=== PATIENT | male | born 1950 | race Caucasian/White ===

== ENCOUNTER 2018-09-23 08:02 | Day surgery (SDC) | payer MEDICARE, OTHER ==
[~2018-09-23 08:02] MED LIST: Lactated Ringers 1,000 ML IV SCH; Sodium Chloride 0.9% 10 ML Syringe FLUSH PRN
[2018-09-23] MEDS ORDERED: Propofol 200 MG/20 ML SDV ONE (11:04)
[2018-09-23] MEDS ORDERED: fentaNYL 100 MCG/2 ML SDV ONE (11:04)
--- NOTE | 2018-09-23 12:32 | OR ---
PREOPERATIVE DIAGNOSIS: Pharyngeal dysphagia. POSTOPERATIVE DIAGNOSES: 1. Diffuse gastritis with superficial ulcerations. 2. 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 PROCEDURE PROPOSED AND PROCEDURE DONE: Upper gastrointestinal panendoscopy with antral biopsies. INDICATION: This is a 68-year-old gentleman who has been having some pharyngeal dysphagia over the last couple of months. He denies any gastric symptomatology, but it was felt that he should be gastroscoped to rule out significant pathology. TECHNIQUE: The patient was brought to the endoscopy suite and placed in left lateral decubitus position. He was sedated per DR[employer] HAMMER SETTER UP with propofol. The flexible video gastroscope was advanced transorally and under visualization, advanced well into the duodenum. The duodenal bulb revealed some duodenitis. The antrum and body of the stomach revealed diffuse gastritis with some superficial ulcerations, and a couple of antral biopsies were taken to rule out H. pylori. GE junction did not reveal any evidence of hiatal hernia. There were no signs of any active GERD, stenosis, or Schatzki's ring. The remainder of the esophagus was normal as the scope was then withdrawn. The patient tolerated the procedure well. FINAL IMPRESSION: 1. Diffuse gastritis with superficial ulcerations. 2. Duodenal bulb duodenitis. 3. 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 PLAN: Protonix generic 40 mg daily for 6 weeks. He needs to avoid and cut back on the caffeine consumption as well as ibuprofen and Aleve. Follow up with his PCP as needed. He was given 1 or 2 refills. SCM: 09/23/2018 11:58:08 MODL: 09/23/2018 12:25:19 /[id number]
--- NOTE | 2018-10-04 08:15 | LETTER ---
10/04/2018 Koel Hernandez RE: KOLE HERNANDEZ : 1950 Dear Kole: The biopsies taken from your stomach did not reveal any significant pathology and most importantly, you do not have the bacteria in your stomach known as H pylori. If you have any further questions regarding this, feel free to call. Respectfully,
== END 2018-09-23 12:52 | disposition home or self-care (01) ==
LOC: VM.SDS 08:02
PROVIDERS: ATTEND Surgery
DX: K29.70 Gastritis, unspecified, without bleeding (principal); K29.80 Duodenitis without bleeding; K25.9 Gastric ulcer, unspecified as acute or chronic, without hemorrhage or perforation; F41.8 Other specified anxiety disorders; R53.83 Other fatigue; R35.0 Frequency of micturition; M19.041 Primary osteoarthritis, right hand; G25.81 Restless legs syndrome; M17.12 Unilateral primary osteoarthritis, left knee; G47.33 Obstructive sleep apnea (adult) (pediatric); R79.89 Other specified abnormal findings of blood chemistry; E78.00 Pure hypercholesterolemia, unspecified; E78.5 Hyperlipidemia, unspecified; F32.9 Major depressive disorder, single episode, unspecified; Z79.82 Long term (current) use of aspirin; Z79.899 Other long term (current) drug therapy; Z87.891 Personal history of nicotine dependence; Z99.89 Dependence on other enabling machines and devices; Z96.619 Presence of unspecified artificial shoulder joint
CPT/HCPCS: 00731; 43239; J2704; J3010; J7120; 88305

== ENCOUNTER 2021-07-28 12:00 | Day surgery (SDC) | payer MEDICARE, OTHER ==
[2021-07-28] MEDS ORDERED: fentaNYL 100 MCG/2 ML SDV ONE (13:34)
[2021-07-28] MEDS ORDERED: Propofol 200 MG/20 ML SDV ONE ×2 (13:34→14:42)
== END 2021-07-28 16:00 | disposition home or self-care (01) ==
LOC: VM.SDS 12:00
PROVIDERS: ATTEND Family Medicine
DX: Z12.11 Encounter for screening for malignant neoplasm of colon (principal); D12.0 Benign neoplasm of cecum; D12.2 Benign neoplasm of ascending colon; D12.3 Benign neoplasm of transverse colon; D12.4 Benign neoplasm of descending colon; K57.30 Diverticulosis of large intestine without perforation or abscess without bleeding; G47.33 Obstructive sleep apnea (adult) (pediatric); E78.00 Pure hypercholesterolemia, unspecified; F32.A Depression, unspecified; G25.81 Restless legs syndrome; Z98.890 Other specified postprocedural states; Z80.0 Family history of malignant neoplasm of digestive organs; Z79.899 Other long term (current) drug therapy
CPT/HCPCS: 00812; 88305; J2704; J3010; J7120

== ENCOUNTER 2024-09-25 11:34 | Day surgery (SDC) | payer MEDICARE, OTHER ==
[2024-09-25] MEDS: Lactated Ringers 1,000 ML IV SCH (11:54)
[2024-09-25] MEDS ORDERED: fentaNYL 100 MCG/2 ML SDV ONE (12:20)
[2024-09-25] MEDS ORDERED: Propofol 200 MG/20 ML SDV ONE (12:20)
[2024-09-25] MEDS ORDERED: Midazolam 1 MG/ML 2 ML SDV ONE (13:03)
[2024-09-25] MEDS ORDERED: Flumazenil 0.1 MG/ML 5 ML MDV ONE (13:15)
== END 2024-09-25 14:50 | disposition home or self-care (01) ==
LOC: VM.SDS 11:34
PROVIDERS: ATTEND Family Medicine
DX: Z12.11 Encounter for screening for malignant neoplasm of colon (principal); K63.5 Polyp of colon; K57.30 Diverticulosis of large intestine without perforation or abscess without bleeding; E78.5 Hyperlipidemia, unspecified; F41.9 Anxiety disorder, unspecified; F32.A Depression, unspecified; Z86.0101 Personal history of adenomatous and serrated colon polyps; Z80.0 Family history of malignant neoplasm of digestive organs; Z79.899 Other long term (current) drug therapy
CPT/HCPCS: 00811; 88305; 99100; J2250; J2704; J3010; J3490; J7120